=== PATIENT | female | born 1965 | race African-American/Black ===

== ENCOUNTER 2017-02-07 21:53 | Emergency (ER) | payer OTHER ==
[~2017-02-07] VITALS: Ht 167.6 cm; Wt 75.9 kg
[~2017-02-07 21:53] MED LIST: PREDNISONE20 MG PO; PROVENTIL HFA6.7 GM IH; ZITHROMAX Z-PA250 MG PO
[2017-02-07 22:59] LABS: HEMATOCRIT 44.5 % (36.0-46.0); MCH 26.8 PG (29.0-34.0); MCHC 31.9 G/DL (30.0-36.0); MCV 84.1 FL (83-99); MEAN PLAT.VOLUME 9.1 uM^3 (9.5-12.4); PLATELET COUNT 312 K/uL (156-360); RBC DIS.WIDTH-CV 13.1 % (11.8-14.6); RBC DIS.WIDTH-SD 40.3 % (39-53); RED BLOOD COUNT 5.29 M/uL (3.80-5.20); WHITE BLOOD COUNT 4.4 K/uL (4.1-10.2)
[2017-02-07 23:11] LABS: CHLORIDE 103 mEq/L (99-109); POTASSIUM 3.9 mEq/L (3.7-5.4); SODIUM 140 mEq/L (136-147)
[2017-02-07 23:13] LABS: GLUCOSE 98 mg/dL (70-99)
[2017-02-07 23:14] LABS: ANION GAP 12 MEQ/L (2-14)
[2017-02-07 23:14] LABS: ADD MIUA? NO; BILIRUBIN NEGATIVE; BLOOD NEGATIVE; COLOR YELLOW ((YELLOW)); GLUCOSE (STRIP) NEGATIVE; KETONES NEGATIVE; LEUKOCYTES NEGATIVE; NITRITE NEGATIVE; PROTEIN (STRIP) NEGATIVE; SPECIFIC GRAVITY 1.011 (1.000-1.030); UCUL ADDED? NO; UROBILINOGEN 0.2 MG/DL (0.2-1.0)
[2017-02-07 23:15] LABS: TOTAL BILIRUBIN 0.3 mg/dL (0.0-1.0)
[2017-02-07 23:17] LABS: ALKALINE PHOSPHATASE 82 IU/L (3-129); GFR ESTIMATE (CALCULATED) > 59 mL/min/
[2017-02-07 23:18] LABS: UREA NITROGEN (BUN) 12 mg/dL (9-23)
[2017-02-07 23:21] LABS: TROP-I INTERPRETATION NEGATIVE; TROPONIN-I 0.01 ng/mL (0.0-0.30)
[2017-02-07] MEDS ORDERED: ZITHROMAX250 MG PO (23:48)
[2017-02-07] MEDS ORDERED: MOTRIN600 MG PO (23:48)
[2017-02-08 00:16] VITALS: BP 123/62
== END 2017-02-08 00:42 | disposition home or self-care (01) ==
LOC: EXP 21:53 → EME 21:53 → EXP 02-08 00:42
PROVIDERS: Physician Assistant
DX: R07.9 Chest pain, unspecified (principal); J32.9 Chronic sinusitis, unspecified; I10 Essential (primary) hypertension; F17.200 Nicotine dependence, unspecified, uncomplicated; E11.9 Type 2 diabetes mellitus without complications
CPT/HCPCS: 71020; 80053; 81003; 84484; 85027; 93005; 99281; 99284

== ENCOUNTER 2018-01-02 21:02 | Emergency (ER) | payer OTHER ==
[~2018-01-02] VITALS: Ht 170.2 cm; Wt 79.8 kg
[~2018-01-02 21:02] MED LIST changes: +MOTRIN600 MG PO; +ZITHROMAX250 MG PO
[2018-01-02 22:10] LABS: HEMOGLOBIN 13.9 G/DL (11.9-15.5); MCH 27.8 PG (29.0-34.0); MCHC 33.1 G/DL (30.0-36.0); PLATELET COUNT 281 K/uL (156-360); RBC DIS.WIDTH-CV 12.8 % (11.8-14.6); RBC DIS.WIDTH-SD 38.9 % (39-53); WHITE BLOOD COUNT 5.9 K/uL (4.1-10.2)
[2018-01-02 22:18] LABS: CHLORIDE 108 mEq/L (99-109); POTASSIUM 3.7 mEq/L (3.7-5.4); SODIUM 139 mEq/L (136-147)
[2018-01-02 22:20] LABS: GLUCOSE 99 mg/dL (70-99); TOTAL PROTEIN 7.4 g/dL (6.4-8.3)
[2018-01-02 22:22] LABS: TOTAL BILIRUBIN 0.2 mg/dL (0.0-1.0)
[2018-01-02 22:23] LABS: ALKALINE PHOSPHATASE 84 IU/L (3-129)
[2018-01-02 22:24] LABS: CREATININE 0.9 mg/dL (0.6-1.3); GFR ESTIMATE (CALCULATED) > 59 mL/min/
[2018-01-02 22:25] LABS: AST (GOT) 22 IU/L (2-34); UREA NITROGEN (BUN) 8 mg/dL (9-23)
[2018-01-02 22:26] LABS: ALT (GPT) 10 IU/L (3-49)
[2018-01-02 22:34] LABS: QUANTITATIVE HCG < 4.0 MIU/ML
[2018-01-03] MEDS ORDERED: INDOCIN50 MG PO (02:12)
[2018-01-03] MEDS ORDERED: PREDNISONE20 MG PO (02:12)
[2018-01-03 02:59] LABS: D-DIMER ELISA < 150.00 ng/mLDDU (<230)
[2018-01-03 03:05] VITALS: BP 164/97
== END 2018-01-03 02:32 | disposition home or self-care (01) ==
LOC: EME 21:02
PROVIDERS: Physician Assistant
DX: M19.042 Primary osteoarthritis, left hand (principal); M19.041 Primary osteoarthritis, right hand; G56.02 Carpal tunnel syndrome, left upper limb; G56.20 Lesion of ulnar nerve, unspecified upper limb; I10 Essential (primary) hypertension; R73.03 Prediabetes; F17.200 Nicotine dependence, unspecified, uncomplicated; Z88.0 Allergy status to penicillin
CPT/HCPCS: 80053; 83880; 84702; 85027; 85379; 99281; 99283; J7512

== ENCOUNTER 2018-04-04 19:54 | Emergency (ER) | payer OTHER ==
[~2018-04-04] VITALS: Ht 170.2 cm; Wt 81.7 kg
[~2018-04-04 19:54] MED LIST changes: +INDOCIN50 MG PO
[2018-04-04] MEDS ORDERED: PREDNISONE20 MG PO (20:40)
[2018-04-04] MEDS ORDERED: LIDODERM 5% P1 PATCH TD (20:41)
[2018-04-04 20:49] VITALS: BP 155/60
== END 2018-04-04 20:51 | disposition home or self-care (01) ==
LOC: EME 19:54
DX: G56.03 Carpal tunnel syndrome, bilateral upper limbs (principal); I10 Essential (primary) hypertension; R73.03 Prediabetes; F17.200 Nicotine dependence, unspecified, uncomplicated; Z88.0 Allergy status to penicillin
CPT/HCPCS: 99281; 99283; J7512